=== PATIENT | male | born 1980 | race Caucasian/White ===

== ENCOUNTER 2019-02-09 00:04 | Emergency (ER) | payer SELFPAY ==
[~2019-02-09] VITALS: Ht 180.3 cm; Wt 140.0 kg
[2019-02-09] MEDS ORDERED: TETanus/Pertussis (Acell)/Diphther VAC/PF (Tdap-Adult) 0.5ml syringe IMVAC ONE (00:45)
[2019-02-09] MEDS ORDERED: LIDOcaine 1% W/epiNEPHrine 1:200,000 10ml vial IJ ONE (00:45)
[2019-02-09] MEDS ORDERED: CEPH250T PO (00:49)
[2019-02-09 02:07] VITALS: BP 165/105
== END 2019-02-09 02:11 | disposition home or self-care (01) ==
LOC: ER 00:05
DX: S62.631B Displaced fracture of distal phalanx of left index finger, initial encounter for open fracture (principal); W34.010A Accidental discharge of airgun, initial encounter; Y93.89 Activity, other specified; Y92.89 Other specified places as the place of occurrence of the external cause; Y99.9 Unspecified external cause status
CPT/HCPCS: 73140; 90715; 99283

== ENCOUNTER 2019-02-17 15:03 | Outpatient (CLI) | payer SELFPAY ==
[~2019-02-17 15:03] MED LIST: CEPH250T PO
== END 2019-02-17 16:50 | disposition home or self-care (01) ==
LOC: ORTHO 15:03
PROVIDERS: ATTEND Orthopaedic Surgery
DX: S62.631A Displaced fracture of distal phalanx of left index finger, initial encounter for closed fracture (principal); X58.XXXA Exposure to other specified factors, initial encounter; Y93.89 Activity, other specified; Y92.89 Other specified places as the place of occurrence of the external cause; Y99.8 Other external cause status
CPT/HCPCS: 73140; G0463

== ENCOUNTER 2021-10-29 12:32 | Emergency (ER) | payer SELFPAY ==
[~2021-10-29] VITALS: Ht 182.9 cm; Wt 146.8 kg
[2021-10-29 12:46] VITALS: BP 129/93
[2021-10-29] MEDS ORDERED: CIPR7.5D EACH EAR (13:49)
== END 2021-10-29 14:01 | disposition home or self-care (01) ==
LOC: ER 12:33
DX: H60.331 Swimmer's ear, right ear (principal); H92.01 Otalgia, right ear; F12.90 Cannabis use, unspecified, uncomplicated; Z72.89 Other problems related to lifestyle; Z79.2 Long term (current) use of antibiotics
CPT/HCPCS: 99283

== ENCOUNTER 2021-12-27 10:05 | Emergency (ER) | payer MEDICAID ==
[~2021-12-27] VITALS: Ht 185.4 cm; Wt 143.0 kg
[~2021-12-27 10:05] MED LIST changes: -CEPH250T PO; +CIPR7.5D EACH EAR
[2021-12-27 11:03] LABS: BASOPHILS % (AUTO) 0.4 % (0-1); EOSINOPHILS # (AUTO) 0.1 X10'3 (0-0.9); HEMATOCRIT 51.5 % (42.0-52.0); HEMOGLOBIN 17.6 g/dl (14.0-17.9); LYMPHOCYTES # (AUTO) 2.4 X10'3 (1.1-4.8); LYMPHOCYTES % (AUTO) 27.4 % (21-51); MEAN CORPUSCULAR HGB CONC 34.2 g/dL (33.0-36.5); MEAN CORPUSCULAR VOLUME 93.7 FL (78-98); MEAN PLATELET VOLUME 8.9 FL (7.4-10.4); MONOCYTES # (AUTO) 0.7 X10'3 (0-0.9); NEUTROPHILS # (AUTO) 5.5 X10'3 (1.8-7.7); NEUTROPHILS % (AUTO) 63.2 % (42-75); PLATELET COUNT 218 X10'3 (140-440); WHITE BLOOD COUNT 8.7 X10'3 (4.5-11.0)
[2021-12-27 11:08] LABS: ALANINE AMINOTRANSFERASE 38 U/L (12-78); ALBUMIN/GLOBULIN RATIO 1.1 (1.1-1.5); ALKALINE PHOSPHATASE 99 IU/L (46-116); ANION GAP 7 (8-16); ASPARTATE AMINO TRANSFERASE 22 U/L (10-37); BILIRUBIN,TOTAL 0.6 MG/DL (0.1-1.0); BLOOD UREA NITROGEN 10 MG/DL (7-18); BUN/CREATININE RATIO 9.7 (5.4-32.0); CALCIUM 9.8 MG/DL (8.5-10.1); CHLORIDE 99 MMOL/L (99-107); CREATININE 1.03 MG/DL (0.60-1.10); GLUCOSE 118 MG/DL (70-104); POTASSIUM 4.2 MMOL/L (3.5-5.1); SODIUM 137 MMOL/L (135-145); TOTAL CARBON DIOXIDE 31.1 MMOL/L (24-32); TOTAL PROTEIN 7.7 G/DL (6.4-8.2); eGFR 80 ML/MIN
[2021-12-27] MEDS ORDERED: mag hydrox/Alum hydrox/simeth 30ml oral suspension PO ONE (15:30)
[2021-12-27] MEDS ORDERED: pantoprazole 40mg Tablet.DR PO ONE (15:30)
[2021-12-27] MEDS ORDERED: LIDOcaine Viscous 15ml cup MM ONE (15:30)
[2021-12-27] MEDS ORDERED: HYDROcodone/acetaminophen 5mg/325mg tablet PO ONE (16:55)
[2021-12-27 17:10] LABS: LIPASE 87 U/L (73-393)
[2021-12-27 17:12] LABS: H PYLORI ANTIBODY NEGATIVE (Neg)
[2021-12-27] MEDS ORDERED: LOSA25TA96 PO (17:23)
[2021-12-27] MEDS ORDERED: PANT20TA2 PO (17:23)
[2021-12-27] MEDS ORDERED: losartan 50mg tablet PO STA (17:25)
[2021-12-27] MEDS ORDERED: losartan 25mg tablet PO STA (17:28)
[2021-12-27 17:41] VITALS: BP 148/98
[2021-12-28 06:44] LABS: OCCULT BLOOD STOOL POSITIVE (Neg)
== END 2021-12-27 17:43 | disposition home or self-care (01) ==
LOC: ER 10:05
DX: R10.13 Epigastric pain (principal); F12.10 Cannabis abuse, uncomplicated; Z79.899 Other long term (current) drug therapy
CPT/HCPCS: 36415; 71045; 80053; 82272; 83690; 83880; 84484; 85025; 86677; 93005; 99285